=== PATIENT | female | born 1940 | race Caucasian/White ===

== ENCOUNTER → 2018-06-03 | Outpatient (CLI) | payer MEDICARE, OTHER ==
[~2018-06-03] MED LIST: AMOXICILLIN500 M1 PO; ASPIRIN325; CALCIUM + D3 E1 EACH; CEFTRIAXONE IV; CIPROFLOXACIN500 M3 PO; CRESTOR10 MG; DESYREL150 MG; DYRENIUM100 MG; FLONASE 0.05%50 MCG NASAL; FOLIC ACID0.8 MG; K-DUR 20 MEQ T20 MEQ PO; K-DUR10 MEQ; LEVOTHYROXINE0.05 MG; LISINOPRIL5 MG; MEGA RED; NORCO 5-325 TA1 EACH PO; VITAMIN B 12; VITAMIN D1000 UNI1; ZOFRAN4 MG PO
== END ==
LOC: M.RAD 10:29
DX: Z12.31 Encounter for screening mammogram for malignant neoplasm of breast (principal); M85.80 Other specified disorders of bone density and structure, unspecified site

== ENCOUNTER → 2019-06-01 | Outpatient (CLI) | payer MEDICARE, OTHER | LOC: M.RAD 09:00 | DX: Z12.31 Encounter for screening mammogram for malignant neoplasm of breast (principal) ==

== ENCOUNTER → 2020-01-05 | Outpatient (CLI) | payer MEDICARE, OTHER | LOC: M.LAB 10:07 | DX: Z01.818 Encounter for other preprocedural examination (principal); K44.9 Diaphragmatic hernia without obstruction or gangrene; M47.814 Spondylosis without myelopathy or radiculopathy, thoracic region; M48.04 Spinal stenosis, thoracic region; I70.0 Atherosclerosis of aorta; Q25.46 Tortuous aortic arch ==

== ENCOUNTER → 2020-01-11 | Outpatient (CLI) | payer MEDICARE, OTHER ==
--- NOTE | 2020-01-11 17:30 | CARDNUC ---
[place] [address] CARDIAC NUCLEAR IMAGING REPORT Name: JOVANNY CLEVELAND Room: [facility]#: [id number] Admission: 01/11/20 Attend Phys: Neisha Phillips, Discharge: Date of : 36 Date of Service: 01/11/20 1729 Report #: [id number] THIS REPORT FOR: cc: Karishma Flores MD, Katrina MD Liston, Michael J. MD [facility] ~ APPROVED REPORT Imaging Protocol: Stress Tc-99m/Rest Tc-99m 2 days Study performed: 01/11/2020 13:15:00 Indication: Pre-Operative CV evaluation, Murmur, Dyspnea. Patient Location: Out-Patient Stress Tech: Siri Hazel Stress Nurse: Michaela Dial RN Ht: 4 ft 11 in Wt: 153 lbs BSA: 1.65 m2 BMI: 30.89 Medical History Medical History: HTN, Hyperlipidemia, SOB, Valvular heart disease, Murmur. Medications: Rosuvastatin, Dyazide. Allergies: Amoxicillin. Cardiac Risk Factors: Age, FHX of CAD, HTN, Hyperlipidemia, SOB, Aortic Valve Stenosis/Murmur. Previous Cardiac Procedures: None Pretest Chest Pain Characteristics: No chest pain Exercise History: Indeterminate Physical Disabilities: Murmur. Meds Held (24 hrs): None Resting Data Rest SPECT myocardial perfusion imaging was performed in supine position 30 minutes following the intravenous injection of 11.3 mCi of Tc-99m Sestamibi. Time of rest injection: 13:50 Administration Route: IV Administration Site: Right AC Pharmacologic Stress Pharmacologic stress test was performed by injecting Regadenoson 0.4 mg IV push over 10-15 seconds immediately followed by the intravenous injection of 34.2 mCi of Tc-99m [place] [address] CARDIAC NUCLEAR IMAGING REPORT Name: JOVANNY CLEVELAND J Room: [facility] GINGER Winkler#: [id number] Admission: 01/11/20 Attend Phys: Neisha Verasgs, Discharge: Date of : 36 Date of Service: 01/11/20 1729 Report #: [id number] Time of stress injection: 15:50 Administration Route: IV Administration Site: Right AC Gated Stress SPECT was performed 40 minutes after stress injection. The images were gated to evaluate regional wall motion and calculate left ventricular ejection fraction. Prone imaging was performed. Stress Test Details Stress Test: Pharmacologic stress testing performed using 0.4 mg of regadenoson per 5 mL given IV over 10 seconds. Reason for pharmacologic stress test: murmur.. HR Max Heart Rate (APMHR): 139 bpm Resting HR: 63 bpm Target HR (85% APMHR): 118 bpm Max HR Achieved: 100 bpm % of APMHR: 71 Recovery HR: 90 bpm BP Resting BP: 153/88 mmHg Max BP: 170/77 mmHg Recovery BP: 179/84 mmHg ECG Resting ECG: Sinus Rhythm Stress ECG: Sinus Tachycardia ST Change: None Arrhythmia: None Recovery ECG: Sinus Rhythm Recovery ST Change: None Recovery Arrhythmia: None Clinical Reason for Termination: Completed protocol Stress Symptoms: Headache, labored breathing, flushed/warmth. Exercise duration: 00 min 00 sec Exercise capacity: 1.00 METs The patient tolerated Lexiscan infusion without significant cardiac symptoms. Nurse Comments An 79 year old female presented for a sitting Lexiscan r/t dyspnea, murmur and Pre-op clearance. Test well tolerated. Recovery unremarkable with PO caffeine, effective. [place] [address] CARDIAC NUCLEAR IMAGING REPORT Name: JOVANNY CLEVELAND Room: [facility]#: [id number] Admission: 01/11/20 Attend Phys: Neisha Phillips, Discharge: Date of : 36 Date of Service: 01/11/20 1729 Report #: [id number] staff to [facility] for imaging. Patient was stable and stated she felt good at that time. Stress ECG Conclusion The baseline 12-lead EKG shows sinus rhythm without significant ST segment abnormality. EKGs obtained during and post Lexiscan infusion show sinus rhythm and sinus tachycardia with no significant ST segment changes when compared baseline. There were no stress-induced arrhythmias. Study Quality Study: Good Artifact: No artifact Study Data At rest, the left ventricular ejection fraction was 66%.. Post stress, the left ventricular ejection was 76%.. TID = 0.91. Perfusion Images obtained at rest and post Lexiscan stress show uniform uptake of the radioisotope throughout the myocardium without defect. Wall Motion Normal left ventricular wall motion. Nuclear Conclusion ECG Findings: negative for ischemia Clinical Findings: negative for ischemia Nuclear Findings: negative for ischemia Exercise Capacity: not assessed Left Ventricular Function: normal Risk Study: low Myocardial perfusion images show no defect to suggest infarct or ischemia. Left ventricular systolic function appears normal on gated studies. This is a low risk study. <Conclusion> The baseline 12-lead EKG shows sinus rhythm without significant ST segment abnormality. EKGs obtained during and post Lexiscan infusion show sinus rhythm and sinus tachycardia with [place] [address] CARDIAC NUCLEAR IMAGING REPORT Name: JOVANNY CLEVELAND Room: [facility]#: [id number] Admission: 01/11/20 Attend Phys: Neisha Phillips, Discharge: Date of : 36 Date of Service: 01/11/20 1729 Report #: [id number] segment changes when compared baseline. There were no stress-induced arrhythmias. <ELECTRONICALLY SIGNED> By: Lito Apodaca MD, FACC 01/11/20 1729 1729 Lito Apodaca MD, FAC /INF
== END ==
LOC: M.NUC 01-05 16:18
DX: Z01.818 Encounter for other preprocedural examination (principal); I10 Essential (primary) hypertension; E78.5 Hyperlipidemia, unspecified; Z79.899 Other long term (current) drug therapy

== ENCOUNTER → 2020-06-26 | Outpatient (CLI) | payer MEDICARE, OTHER | LOC: M.RAD 06-04 13:20 | PROVIDERS: ATTEND Family Medicine | DX: Z12.31 Encounter for screening mammogram for malignant neoplasm of breast (principal); M81.0 Age-related osteoporosis without current pathological fracture; M85.851 Other specified disorders of bone density and structure, right thigh ==

== ENCOUNTER 2021-03-14 19:19 | Emergency (ER) | payer MEDICARE, OTHER ==
[~2021-03-14] VITALS: Ht 144.8 cm; Wt 64.9 kg
--- NOTE | ~2021-03-14 | EMS ---
[address] [address] EMS Patient Care Report Name: JOVANNY CLEVELAND Room: [facility]#: [id number] Admission: 03/14/21 Attend Phys: Discharge: 03/14/21 Date of : 36 Report #: [id number] THIS REPORT FOR: //name// Report Transmitted: 03/15/2021 16:32 EMS Care Summary [place] [facility] Incident 21-0401 @ 03/14/2021 18:36 Incident Location [address] [place] [address] Patient JOVANNY CLEVELAND Female, 80 Years 1940 Patient Address [address] [place] [address] Patient History Hypertension (HTN),Back Pain (Chronic), Patient Allergies No known allergies, Patient Medications Meclizine, Hydrocodone, Triamterene, Trazodone, Finasteride, Chief Complaint flank pain Disposition Transported No Lights/[place] Dispatch Reason Falls Transported To [facility] Narrative [facility] was dispatched for a 80 year old female that had fallen down earlier today and possibly broke her ribs. Med 1 responds to the scene emergent. Arrival at the scene patient is located sitting down on a recliner guarding her right flank. Patient acknowledges EMS presence is GCS 15, AAOx4. [address] [place] [address] EMS Patient Care Report Name: JOVANNY CLEVELAND Room: [facility]#: [id number] Admission: 03/14/21 Attend Phys: Discharge: 03/14/21 Date of : 38 Report #: [id number] Patient has a patent airway is breathing adequately with strong regular radial pulses. Skin is pink warm and dry. Patient advises that she tripped over her cat and fell onto her right side. Patient denies any neck or back pain or loss of consciousness. Patient confirms tenderness to the right flank and increased pain upon palpation or movement. Patient agrees to transport to [place] for further evaluation. Patient is assisted to the stretcher and placed on the left recumbent position which is the most comfortable position for the patient and secured with seatbelts and rails. Patient is wheeled to the ambulance and placed on the monitor to obtain VS. IV access is established in the left antecubital region using a 20 gauge IV and secured with a venigard. Transport is initiated. Assessment is conducted. Patient is GCS 15, AAOx4. Patient has a patent airway is breathing adequately with strong regular radial pulses. Skin is pink warm and dry. HEENT are WNL. Pupils are PERRL. Trachea is midline with no JVD noted. Chest wall is stable and intact with symmetrical rise and fall. Lung sounds are clear and equal. Abdomen is soft and nontender with no distention or rigidity noted. Pelvis is stable intact. CMSX4 present. Arrival at the receiving facility patient is offloaded and taken to ED room 11. Patient is moved from the stretcher to the bed using the linen. RN is given report and transfer of care is completed. Signatures are obtained and Med 1 returns to service. Initial Vitals @18:54P: 98,R: 18,BP: 158/68,Pain: 8/10,GCS: 15,SpO2: 96,Revised Trauma: 12, @19:08P: 100,R: 16,BP: 138/65,Pain: 6/10,GCS: 15,SpO2: 95,Revised Trauma: 12, Assessments @19:08MENTAL:No Abnormalities,SKIN:No Abnormalities,HEENT:Head/Face: No Abnormalities,Eyes: No Abnormalities,Neck/Airway: No Abnormalities,LUNG SOUNDS:General: No Abnormalities,ABDOMEN:General: No Abnormalities,PELVIS//GI:No Abnormalities,EXTREMITIES:Left Arm: No Abnormalities,Right Arm: No Abnormalities,Left Leg: No Abnormalities,Right Leg: No Abnormalities,PULSE:NEURO:No Abnormalities, Impression Acute Pain, not elsewhere classified Procedures @18:59Saline Lock 10cc (20 ga) Site: Antecubital-LeftResponse: UnchangedSucceeded@19:08ALS AssessmentResponse: UnchangedSucceeded Timeline 18:36,Call Received 18:36,[place] [address] EMS Patient Care Report Name: JOVANNY CLEVELAND [id number] Admission: 03/14/21 Attend Phys: Discharge: 03/14/21 Date of : 36 Report #: [id number] 18:37,En Route 18:41,Initial Responder On Scene 18:41,On Scene 18:43,At Patient 18:54,Depart Scene 18:54,BP: 158/68 M,PULSE: 98,RR: 18 R,SPO2: 96 Ox,ETCO2: ,BG: ,PAIN: 8,GCS: 15, 18:59,Saline Lock 10cc 20 ga Site: Antecubital-Left,Response: UnchangedSucceeded, 19:08,BP: 138/65 M,PULSE: 100,RR: 16 R,SPO2: 95 Ox,ETCO2: ,BG: ,PAIN: 6,GCS: 15, 19:08,ALS Assessment,Response: UnchangedSucceeded, 19:16,At Destination 19:17,Transfer Patient 19:40,Call Closed 19:40,In District Disclaimer v1.1 Copyright 2020 [employer] This EMS Care Summary contains data elements from the applicable legal record (which may be displayed differently). It is designed to provide pertinent information for the following purposes: continuity of care, clinical quality, and state data reporting. The complete legal record is available to ED staff and administrators of the receiving hospital in [employer]'s Patient Tracker. All data is provided "as is."
[2021-03-14] MEDS ORDERED: HYDROCODON-ACE1 EAC7 PO (20:38)
[2021-03-14] MEDS ORDERED: OXYCODONE HCL 55 MG PO (20:47)
[2021-03-14 21:38] VITALS: BP 127/59
== END 2021-03-14 21:39 | disposition home or self-care (01) ==
LOC: M.ERS 19:19
DX: S22.41XA Multiple fractures of ribs, right side, initial encounter for closed fracture (principal); E78.5 Hyperlipidemia, unspecified; E03.9 Hypothyroidism, unspecified; I10 Essential (primary) hypertension; M41.9 Scoliosis, unspecified; Z90.49 Acquired absence of other specified parts of digestive tract; Z88.0 Allergy status to penicillin; Z88.8 Allergy status to other drugs, medicaments and biological substances; W01.0XXA Fall on same level from slipping, tripping and stumbling without subsequent striking against object, initial encounter; Y93.89 Activity, other specified; Y92.89 Other specified places as the place of occurrence of the external cause; Y99.8 Other external cause status

== ENCOUNTER → 2021-07-08 | Outpatient (CLI) | payer MEDICARE, OTHER ==
[~2021-07-08] MED LIST changes: +HYDROCODON-ACE1 EAC7 PO; +OXYCODONE HCL 55 MG PO
== END ==
LOC: M.RAD 10:30
PROVIDERS: ATTEND Family Medicine
DX: Z12.31 Encounter for screening mammogram for malignant neoplasm of breast (principal)

== ENCOUNTER → 2021-11-14 | Outpatient (CLI) | payer MEDICARE, OTHER | LOC: M.MRI 12:57 | PROVIDERS: ATTEND Family Medicine | DX: M48.061 Spinal stenosis, lumbar region without neurogenic claudication (principal); M41.86 Other forms of scoliosis, lumbar region; M48.07 Spinal stenosis, lumbosacral region; M47.26 Other spondylosis with radiculopathy, lumbar region; M25.78 Osteophyte, vertebrae ==

== ENCOUNTER 2021-12-11 13:14 | Emergency (ER) | payer MEDICARE, OTHER ==
[~2021-12-11] VITALS: Ht 152.4 cm; Wt 68.0 kg
[2021-12-11] MEDS ORDERED: CELEXA 10 MG TA10 M1 PO (14:01)
[2021-12-11] MEDS ORDERED: FOSAMAX 70 MG T70 MG PO (14:01)
[2021-12-11] MEDS ORDERED: FLONASE 0.05%50 MCG NASAL (14:02)
[2021-12-11] MEDS ORDERED: DESYREL150 MG PO (14:02)
[2021-12-11] MEDS ORDERED: TRIAMTERENE-HC1 EAC2 PO (14:04)
[2021-12-11] MEDS ORDERED: NORCO5 PO (15:15)
[2021-12-11 15:35] VITALS: BP 148/68
== END 2021-12-11 15:35 | disposition home or self-care (01) ==
LOC: M.ERS 13:14
DX: S82.64XA Nondisplaced fracture of lateral malleolus of right fibula, initial encounter for closed fracture (principal); E78.5 Hyperlipidemia, unspecified; E03.9 Hypothyroidism, unspecified; I10 Essential (primary) hypertension; Z90.49 Acquired absence of other specified parts of digestive tract; Z79.82 Long term (current) use of aspirin; Z79.891 Long term (current) use of opiate analgesic; Z79.899 Other long term (current) drug therapy; Z88.0 Allergy status to penicillin; Z88.8 Allergy status to other drugs, medicaments and biological substances; W01.0XXA Fall on same level from slipping, tripping and stumbling without subsequent striking against object, initial encounter; Y93.89 Activity, other specified; Y92.89 Other specified places as the place of occurrence of the external cause; Y99.8 Other external cause status

== ENCOUNTER → 2021-12-17 | Day surgery (SDC) | payer MEDICARE, OTHER ==
[~2021-12-17] MED LIST changes: +CELEXA 10 MG TA10 M1 PO; -CRESTOR10 MG; +CRESTOR10 MG PO; +DESYREL150 MG PO; +DOXYCYCLINE 10100 MG PO; +FISH OIL PO; +FLONASE 0.05%50 MCG NARES; +FOSAMAX 70 MG T70 MG PO; +NORCO5 PO; +OCUVITE ADULT1 EAC1 PO; +PERCOCET 5-3251 EACH PO; +SUPER THERAVIT1 EACH PO; +TRIAMTERENE-HC1 EAC2 PO; -VITAMIN B 12; +VITAMIN B-12250 MCG PO; +VITAMIN C500 M2 PO; -VITAMIN D1000 UNI1; +VITAMIN D3 5000 PO; +VITAMIN D31250 MCG PO; +XALATAN2.5 ML OPHTHALMIC
[2021-12-17 14:09] LABS: HEMATOCRIT 36.9 % (37.0-47.0); HEMOGLOBIN 12.2 gm/dL (12.0-15.0); MCH 28.9 pg (26.0-34.0); MCHC 32.9 g/dL (28.0-37.0); MCV 87.8 fL (80.0-100.0); MPV 8.1 fl. (7.2-11.1); RBC 4.21 mil/uL (4.20-5.00); RDW-CV 16.7 % (10.5-14.5); WBC 6.5 thou/uL (4.0-11.0)
[2021-12-17 14:16] LABS: CALCIUM 8.8 mg/dL (8.5-10.1); CREATININE 0.7 mg/dL (0.6-1.3)
[2021-12-17 14:25] LABS: POTASSIUM 2.8 mmol/L (3.5-5.1)
--- NOTE | 2021-12-17 15:01 | EKG ---
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 [facility] 1940 Requested By: Shaka Farmer Order Number: [id number] Haley MD: Calixto Salvador Measurements Intervals [place] Rate: 70 P: 38 [place]: 157 QRS: -7 QRSD: 78 T: 4 QT: 586 QTc: 633 Interpretive Statements Sinus rhythm Atrial premature complexes Borderline T abnormalities, anterior leads Prolonged QT interval Compared to ECG 02/17/2013 07:53:07 Atrial premature complex(es) now present T-wave abnormality now present Prolonged QT interval now present Electronically Signed On 12-17-2021 15:01:24 WILLOW ANALYST by Calixto Salvador [email or web address] <ELECTRONICALLY SIGNED> By: Calixto Salvador MD, FAC 12/17/21 1501 1415 1415 Calixto Salvador MD, FAC /EPI
--- NOTE | 2021-12-24 10:57 | OP ---
[address] [address] OPERATIVE REPORT Name: JOVANNY CLEVELAND Room: [facility]#: [id number] Admission: 12/17/21 Attend Phys: Harish Madison II Discharge: Date of : 36 Report #: [id number] THIS REPORT FOR: cc: Karishma Flores MD, Katrina MD Greiner,Harish Driver II DO ~ DATE OF SURGERY: 12/17/2021 PREOPERATIVE DIAGNOSIS: Right lateral malleolus fracture. POSTOPERATIVE DIAGNOSIS: Right lateral malleolus fracture. PROCEDURE: Right lateral malleolus open reduction internal fixation. SURGEON: Harish Madison II, DO BUSINESS EDUCATION PROFESSOR: None. ANESTHESIA: Per operative record. ESTIMATED BLOOD LOSS: 10 mL. ANTIBIOTICS: Per operative record. DRAINS: None. COMPLICATIONS: None. CONDITION: The patient stable to recovery room. IMPLANTS USED: Mclaughlin and Nephew lateral malleolus plate. OPERATIVE PROCEDURE: The patient was taken to the operative suite, placed supine on the operating table, given appropriate anesthesia. The patient had a well-padded tourniquet applied to the affected lower extremity, which was inflated to 300 mmHg after Esmarch exsanguination for duration of procedure. The leg was sterilely prepped and draped. Surgery began by an incision over the fibula laterally. This was carried out to the subcutaneous tissues. The fibula fracture was then visualized with fluoroscopic evaluation and reduced in near anatomic fashion. This was held with lobster claw forceps plate was applied laterally. It was then secured to the fibula utilizing appropriate locking and nonlocking screws. This was visualized in AP and lateral views to be in excellent anatomic position. Cotton test was then performed to assess the syndesmosis and it was intact without widening of the medial joint. Irrigation was performed. The wound was closed with subcuticular Vicryl stitch and a running Monocryl stitch. Sterile dressing was applied as [place] [address] OPERATIVE REPORT Name: JOVANNY CLEVELAND Room: [facility]#: [id number] Admission: 12/17/21 Attend Phys: Harish Madison II Discharge: Date of : 36 Report #: [id number] Dermabond. The patient transported to recovery in stable condition. Counts correct x 2. <ELECTRONICALLY SIGNED> By: Harish Madison II, DO 12/24/21 1057 0652 0723Harish Madison II, DO /nt
== END | disposition home or self-care (01) ==
LOC: M.SUR 06:30
PROVIDERS: Anesthesiology; ATTEND Orthopaedic Surgery
DX: S82.61XA Displaced fracture of lateral malleolus of right fibula, initial encounter for closed fracture (principal); Z98.890 Other specified postprocedural states; Z79.899 Other long term (current) drug therapy; Z20.822 Contact with and (suspected) exposure to COVID-19; Z88.0 Allergy status to penicillin; X58.XXXA Exposure to other specified factors, initial encounter; Y93.89 Activity, other specified; Y92.89 Other specified places as the place of occurrence of the external cause; Y99.8 Other external cause status

== ENCOUNTER 2021-12-22 11:43 | Inpatient (IN) | payer MEDICARE, OTHER ==
[~2021-12-22] VITALS: Ht 152.4 cm; Wt 86.2 kg
--- NOTE | ~2021-12-22 | EMS ---
[address] [address] EMS Patient Care Report Name: JOVANNY CLEVELAND Room: [place] [address] ADM [place] [facility]#: [id number] Admission: 12/22/21 Attend Phys: Dylan Osman MD Discharge: Date of : 36 Report #: [id number] THIS REPORT FOR: //name// Report Transmitted: 12/22/2021 21:24 EMS Care Summary [place] [facility] Incident 22-0157 @ 12/22/2021 10:52 Incident Location [address] [place] [address] Patient JOVANNY CLEVELAND Female, 81 Years 1940 Patient Address [address] [place] [address] Patient History Other,Hypertension (HTN), Patient Allergies Penicillin allergy, Patient Medications Unknown, Chief Complaint AMS Disposition Transported No Lights/[place] Dispatch Reason Sick Person Transported To [facility] Narrative Dispatched to a residence for 81y/o female AMS. Upon arrival pt. was sitting on a couch, alert but confused. Family stated that pt. had a recent fall with a broken leg and had to have pins and plates. Pt. has been home approx. 2 weeks and has had increased general weakness and AMS. Family also stated that pt. [address] [address] EMS Patient Care Report Name: JOVANNY CLEVELAND Room: [place] [address] ADM [place] ..#: [id number] Admission: 12/22/21 Attend Phys: Dylan Osman MD Discharge: Date of : 36 Report #: [id number] urine is discolored but could not give a good description, leading them to suspect a UTI. Pt. voiced no complaints at this time. VS were stable with no changes during transport. Pt. was transported to [place] for emergency services. Initial Vitals @11:05P: 86,R: 16,BP: 160/90,Pain: 0/10,GCS: 14,Glucose: 169,SpO2: 95,Revised Trauma: 12, @11:20P: 84,R: 16,BP: 156/84,GCS: 14,SpO2: 95,Revised Trauma: 12, @11:35P: 84,R: 16,BP: 150/86,GCS: 14,SpO2: 94,Revised Trauma: 12, Impression Altered Mental Status Timeline 10:51,Call Received 10:52,Dispatched 10:53,En Route 10:55,Initial Responder On Scene 10:55,On Scene 10:57,At Patient 11:05,BP: 160/90 M,PULSE: 86,RR: 16 R,SPO2: 95 Ox,ETCO2: ,B,PAIN: 0,GCS: 14, 11:15,Depart Scene 11:20,BP: 156/84 M,PULSE: 84,RR: 16 R,SPO2: 95 Ox,ETCO2: ,BG: ,PAIN: ,GCS: 14, 11:35,BP: 150/86 M,PULSE: 84,RR: 16 R,SPO2: 94 Ox,ETCO2: ,BG: ,PAIN: ,GCS: 14, 11:41,At Destination 11:43,Transfer Patient 11:57,Call Closed 12:12,In District Disclaimer v1.1 Copyright 2021 [employer] This EMS Care Summary contains data elements from the applicable legal record (which may be displayed differently). It is designed to provide pertinent information for the following purposes: continuity of care, clinical quality, and state data reporting. The complete legal record is available to ED staff and administrators of the receiving hospital in [employer]'s Patient Tracker. All data is provided "as is."
--- NOTE | ~2021-12-22 | EMS ---
[address] [address] EMS Patient Care Report Name: JOVANNY CLEVELAND Room: [place] [address] ADM [place] [facility]#: [id number] Admission: 12/22/21 Attend Phys: Dylan Osman MD Discharge: Date of : 36 Report #: [id number] THIS REPORT FOR: //name// Report Transmitted: 12/22/2021 20:23 EMS Care Summary [place] [facility] Incident 22-0157 @ 12/22/2021 10:52 Incident Location [address] [place] [address] Patient JOVANNY CLEVELAND Female, 81 Years 1940 Patient Address [address] [place] [address] Patient History Other,Hypertension (HTN), Patient Allergies Penicillin allergy, Patient Medications Unknown, Chief Complaint AMS Disposition Transported No Lights/[place] Dispatch Reason Sick Person Transported To [facility] Narrative Dispatched to a residence for 81y/o female AMS. Upon arrival pt. was sitting on a couch, alert but confused. Family stated that pt. had a recent fall with a broken leg and had to have pins and plates. Pt. has been home approx. 2 weeks and has had increased general weakness and AMS. Family also stated that pt. [address] [address] EMS Patient Care Report Name: JOVANNY CLEVELAND Room: [place] [address] ADM [place] .R.#: [id number] Admission: 12/22/21 Attend Phys: Dylan Osman MD Discharge: Date of : 36 Report #: [id number] urine is discolored but could not give a good description, leading them to suspect a UTI. Pt. voiced no complaints at this time. VS were stable with no changes during transport. Pt. was transported to [place] for emergency services. Initial Vitals @11:05P: 86,R: 16,BP: 160/90,Pain: 0/10,GCS: 14,Glucose: 169,SpO2: 95,Revised Trauma: 12, @11:20P: 84,R: 16,BP: 156/84,GCS: 14,SpO2: 95,Revised Trauma: 12, @11:35P: 84,R: 16,BP: 150/86,GCS: 14,SpO2: 94,Revised Trauma: 12, Impression Altered Mental Status Timeline 10:51,Call Received 10:52,Dispatched 10:53,En Route 10:55,Initial Responder On Scene 10:55,On Scene 10:57,At Patient 11:05,BP: 160/90 M,PULSE: 86,RR: 16 R,SPO2: 95 Ox,ETCO2: ,B,PAIN: 0,GCS: 14, 11:15,Depart Scene 11:20,BP: 156/84 M,PULSE: 84,RR: 16 R,SPO2: 95 Ox,ETCO2: ,BG: ,PAIN: ,GCS: 14, 11:35,BP: 150/86 M,PULSE: 84,RR: 16 R,SPO2: 94 Ox,ETCO2: ,BG: ,PAIN: ,GCS: 14, 11:41,At Destination 11:43,Transfer Patient 11:57,Call Closed 12:12,In District Disclaimer v1.1 Copyright 2021 [employer] This EMS Care Summary contains data elements from the applicable legal record (which may be displayed differently). It is designed to provide pertinent information for the following purposes: continuity of care, clinical quality, and state data reporting. The complete legal record is available to ED staff and administrators of the receiving hospital in [employer]'s Patient Tracker. All data is provided "as is."
[~2021-12-22 11:43] MED LIST changes: -DOXYCYCLINE 10100 MG PO; -FISH OIL PO; -FLONASE 0.05%50 MCG NARES; -OCUVITE ADULT1 EAC1 PO; -VITAMIN C500 M2 PO; -VITAMIN D3 5000 PO; -XALATAN2.5 ML OPHTHALMIC
[2021-12-22 11:52] VITALS: BP 127/87
[2021-12-22 12:04] LABS: URINE BILIRUBIN NEGATIVE (Negative); URINE BLOOD NEGATIVE (Negative); URINE CLARITY CLEAR; URINE COLOR YELLOW; URINE GLUCOSE-RANDOM NEGATIVE (Negative); URINE KETONES 1+ (Negative); URINE LEUKOCYTES NEGATIVE (Negative); URINE NITRITE NEGATIVE (Negative); URINE PROTEIN TRACE (Negative); URINE SPECIFIC GRAVITY 1.015 (1.005-1.030)
[2021-12-22] MEDS ORDERED: FLONASE 0.05%50 MCG NARES (12:15)
[2021-12-22] MEDS ORDERED: VITAMIN C500 M2 PO (12:16)
[2021-12-22 12:19] LABS: ABSOLUTE BASOPHILS 0.1 thou/uL (0.0-0.2); ABSOLUTE EOSINOPHILS 0.2 thou/uL (0.0-0.7); ABSOLUTE LYMPHOCYTES 1.5 thou/uL (0.8-5.3); ABSOLUTE MONOCYTES 0.8 thou/uL (0.0-1.2); ABSOLUTE NEUTROPHILS 4.4 thou/uL (1.6-8.1); BASOPHILS 0.8 %; EOSINOPHILS 3.1 %; HEMATOCRIT 37.5 % (37.0-47.0); HEMOGLOBIN 12.1 gm/dL (12.0-15.0); LYMPHOCYTES 21.8 %; MCH 28.5 pg (26.0-34.0); MCHC 32.4 g/dL (28.0-37.0); MCV 87.8 fL (80.0-100.0); MONOCYTES 11.2 %; MPV 8.1 fl. (7.2-11.1); NUCLEATED RBCS 0 /100WBC; PLATELET COUNT* 284 thou/uL (150-400); POLYS 63.1 %; RBC 4.26 mil/uL (4.20-5.00); RDW-CV 16.1 % (10.5-14.5); WBC 6.9 thou/uL (4.0-11.0)
[2021-12-22] MEDS ORDERED: OCUVITE ADULT1 EAC1 PO (12:20)
[2021-12-22] MEDS ORDERED: FISH OIL PO (12:22)
[2021-12-22] MEDS ORDERED: VITAMIN D3 5000 PO (12:22)
[2021-12-22] MEDS ORDERED: XALATAN2.5 ML OPHTHALMIC (12:24)
[2021-12-22 12:28] LABS: CALCIUM 8.8 mg/dL (8.5-10.1); CREATININE 0.8 mg/dL (0.6-1.3); POTASSIUM 3.2 mmol/L (3.5-5.1)
[2021-12-22] MEDS ORDERED: PERCOCET 5-3251 EACH PO (12:30)
[2021-12-22 12:33] LABS: ALBUMIN 3.1 g/dL (3.4-5.0); TOTAL BILIRUBIN 0.5 mg/dL (<0.1-1.0)
[2021-12-22 18:21] VITALS: BP 161/81
[2021-12-22 22:30] VITALS: BP 161/89
[2021-12-23] VITALS (8 sets, daily range): BP systolic 159–168; BP diastolic 58–81
[2021-12-23 07:23] LABS: ABSOLUTE BASOPHILS 0.1 thou/uL (0.0-0.2); ABSOLUTE EOSINOPHILS 0.3 thou/uL (0.0-0.7); ABSOLUTE LYMPHOCYTES 1.6 thou/uL (0.8-5.3); ABSOLUTE MONOCYTES 0.8 thou/uL (0.0-1.2); ABSOLUTE NEUTROPHILS 3.8 thou/uL (1.6-8.1); BASOPHILS 0.8 %; EOSINOPHILS 4.1 %; HEMOGLOBIN 11.5 gm/dL (12.0-15.0); LYMPHOCYTES 24.9 %; MCH 28.5 pg (26.0-34.0); MCHC 32.1 g/dL (28.0-37.0); MONOCYTES 12.4 %; MPV 7.7 fl. (7.2-11.1); NUCLEATED RBCS 0 /100WBC; PLATELET COUNT* 264 thou/uL (150-400); POLYS 57.8 %; RBC 4.04 mil/uL (4.20-5.00); RDW-CV 15.5 % (10.5-14.5); WBC 6.6 thou/uL (4.0-11.0)
[2021-12-23 07:49] LABS: CREATININE 0.6 mg/dL (0.6-1.3)
[2021-12-23 10:10] LABS: MAGNESIUM 1.8 mg/dL (1.8-2.4); PHOSPHORUS* 2.3 mg/dL (2.5-4.9)
--- NOTE | 2021-12-23 11:13 | EKG ---
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 : 1940 Requested By: Agusto Isaacs Order Number: [id number] MD: Hugo Whitney Measurements Intervals [place] Rate: 76 P: 38 [place]: 153 QRS: -8 QRSD: 85 T: 5 QT: 396 QTc: 446 Interpretive Statements Sinus rhythm Compared to ECG 12/17/2021 14:15:52 Atrial premature complex(es) no longer present T-wave abnormality no longer present Prolonged QT interval no longer present Electronically Signed On 12-23-2021 11:12:41 SOCIAL SECRETARY by Hugo Whitney [email or web address] <ELECTRONICALLY SIGNED> By: Hugo Whitney MD, [facility] 12/23/21 1112 1233 1233 Hugo Whitney MD, [facility] /EPI
[2021-12-24] VITALS: BP 158/69
[2021-12-24 04:00] VITALS: BP 185/90
[2021-12-24 07:26] LABS: ABSOLUTE BASOPHILS 0.1 thou/uL (0.0-0.2); ABSOLUTE EOSINOPHILS 0.3 thou/uL (0.0-0.7); ABSOLUTE LYMPHOCYTES 1.7 thou/uL (0.8-5.3); ABSOLUTE NEUTROPHILS 3.2 thou/uL (1.6-8.1); BASOPHILS 1.1 %; HEMOGLOBIN 11.6 gm/dL (12.0-15.0); LYMPHOCYTES 26.6 %; MCH 28.5 pg (26.0-34.0); MCHC 32.3 g/dL (28.0-37.0); MCV 88.2 fL (80.0-100.0); MONOCYTES 16.4 %; MPV 7.9 fl. (7.2-11.1); NUCLEATED RBCS 0 /100WBC; PLATELET COUNT* 263 thou/uL (150-400); POLYS 50.9 %; RBC 4.09 mil/uL (4.20-5.00); RDW-CV 15.5 % (10.5-14.5); WBC 6.4 thou/uL (4.0-11.0)
[2021-12-24 07:28] LABS: CALCIUM 8.2 mg/dL (8.5-10.1); CREATININE 0.7 mg/dL (0.6-1.3); POTASSIUM 3.5 mmol/L (3.5-5.1)
[2021-12-24 08:00] VITALS: BP 158/65
[2021-12-24 11:38] VITALS: BP 149/59
[2021-12-24 15:59] VITALS: BP 138/58
[2021-12-24 20:00] VITALS: BP 157/68
[2021-12-25] VITALS: BP 151/71
[2021-12-25 04:00] VITALS: BP 159/72
[2021-12-25 08:19] VITALS: BP 154/71
[2021-12-25 09:41] LABS: ABSOLUTE BASOPHILS 0.1 thou/uL (0.0-0.2); ABSOLUTE EOSINOPHILS 0.2 thou/uL (0.0-0.7); ABSOLUTE MONOCYTES 1.2 thou/uL (0.0-1.2); ABSOLUTE NEUTROPHILS 7.4 thou/uL (1.6-8.1); BASOPHILS 0.9 %; EOSINOPHILS 2.3 %; HEMATOCRIT 38.5 % (37.0-47.0); LYMPHOCYTES 18.4 %; MCH 27.8 pg (26.0-34.0); MCHC 31.1 g/dL (28.0-37.0); MCV 89.2 fL (80.0-100.0); MONOCYTES 11.2 %; MPV 8.1 fl. (7.2-11.1); NUCLEATED RBCS 0 /100WBC; PLATELET COUNT* 299 thou/uL (150-400); POLYS 67.2 %; RBC 4.32 mil/uL (4.20-5.00); RDW-CV 15.7 % (10.5-14.5)
[2021-12-25 09:56] LABS: ALBUMIN 2.9 g/dL (3.4-5.0); CALCIUM 8.4 mg/dL (8.5-10.1); CREATININE 0.8 mg/dL (0.6-1.3); POTASSIUM 3.5 mmol/L (3.5-5.1); TOTAL BILIRUBIN 0.3 mg/dL (<0.1-1.0); TOTAL PROTEIN 7.1 g/dL (6.4-8.2)
[2021-12-25 12:29] VITALS: BP 149/83
[2021-12-25 16:32] VITALS: BP 166/73
[2021-12-25 20:00] VITALS: BP 163/64
[2021-12-26 00:40] VITALS: BP 138/68
[2021-12-26 07:46] VITALS: BP 141/73
[2021-12-26] MEDS ORDERED: DOXYCYCLINE 10100 MG PO (08:19)
[2021-12-26 13:48] VITALS: BP 162/75
== END 2021-12-26 14:55 | DRG 177 ==
LOC: M.ERS 11:43 → M.2W 14:22 → M.TBA-ER 14:22 → M.2W 12-23 15:24
PROVIDERS: Emergency Medicine; ADMIT Internal Medicine; ATTEND Internal Medicine
DX: J15.6 Pneumonia due to other Gram-negative bacteria (principal); G92.8 Other toxic encephalopathy; F11.20 Opioid dependence, uncomplicated; Z20.822 Contact with and (suspected) exposure to COVID-19; E78.5 Hyperlipidemia, unspecified; E03.9 Hypothyroidism, unspecified; I10 Essential (primary) hypertension; M19.90 Unspecified osteoarthritis, unspecified site; F03.90 Unspecified dementia, unspecified severity, without behavioral disturbance, psychotic disturbance, mood disturbance, and anxiety; E87.6 Hypokalemia; G89.29 Other chronic pain; M54.9 Dorsalgia, unspecified; Z90.49 Acquired absence of other specified parts of digestive tract; Z88.0 Allergy status to penicillin; Z88.8 Allergy status to other drugs, medicaments and biological substances; Z87.81 Personal history of (healed) traumatic fracture; Z79.899 Other long term (current) drug therapy

== ENCOUNTER 2021-12-26 14:41 | Inpatient (IN) | payer MEDICARE, OTHER ==
[~2021-12-26] VITALS: Ht 147.3 cm; Wt 65.2 kg
--- NOTE | ~2021-12-26 | EEG ---
[address] [address] EEG STUDY REPORT Name: JOVANNY CLEVELAND Room: [address] [place] .R.#: [id number] Admission: 12/26/21 Attend Phys: Chepe Rivera MD Discharge: Date of : 36 Report #: [id number] THIS REPORT FOR: cc: Karishma Flores MD, Katrina MD Khosla, Parveen K. MD ~ DATE OF SERVICE: 01/03/2022 This patient's EEG was done to evaluate the patient for altered mental status. EEG was done by placing the electrode by standard 10-20 system of electrode placement. Both referential and sequential montages were used. Background activity in this patient's EEG is about 8 Hz and 30 microvolt. There is a symmetrical activity. Photic stimulation is unremarkable. Throughout the record, no active epileptiform activity was noticed. The patient appeared to be drowsy during part of this EEG and that is associated with bilateral slowing. IMPRESSION: This is a moderately abnormal EEG because it is intermixed with theta range slowing on both sides. There is a nonspecific abnormality which can occur with encephalopathy, effect of psychotropic medication, dementia, etc. Clinical correlation is recommended. By: [id number] Bond MD /nt
--- NOTE | ~2021-12-26 | CON ---
[address] [address] CONSULTATION Name: JOVANNY CLEVELAND Room: [address] IN .R.#: [id number] Admission: 12/26/21 Attend Phys: Chepe Rivera MD Discharge: Date of : 36 Report #: [id number] THIS REPORT FOR: cc: Karishma Flores MD, Katrina MD Khosla, Parveen K. MD ~ DATE OF CONSULTATION: 01/01/2022 HISTORY OF PRESENT ILLNESS: An 81-year-old female patient who was evaluated by me for altered mental status and confusion. The patient does not think she is confused. I took the history by reviewing the records, but I also called the patient's daughter and talked to her. This patient lives with the daughter. She moved here mostly for social reason. She does not drive. She had some memory issues before, but now the patient has really gone down and her functional status has significantly declined. She had a fall. She had a broken ankle and then had pneumonia and had what looks like toxic encephalopathy. REVIEW OF SYSTEMS: This patient was here in this hospital in 2012 and I saw her, and she had an MRI. She had moderate amount of disease at that time. She also had headaches. At that time, there was some history suggestive of dementia, difficult to get full history on this patient in that regard. She has a history of hypothyroidism, hypertension, hyperlipidemia, scoliosis. She denies any eyes, ENT, cardiac, respiratory, GI, , constitutional, dermatological, hematological, psychiatric, throat, allergic symptom associated with present symptomatology. PAST MEDICAL HISTORY: Positive for some memory disturbances, but presently she is very confused according to the family. FAMILY HISTORY: Unremarkable. SOCIAL HISTORY: She does not smoke or drink any alcohol. PHYSICAL EXAMINATION: Indicates that when I asked her what month it is, it took a long time to tell me what month it is. She could not tell me the date. She knew the president. Her memory looks pretty poor and that is not the baseline according to the family. Her speech looks intact. Cranial nerve examination 2-12 looks unremarkable. Strength, sensation, tone and reflexes are symmetrical. She does not appear to be ataxic. I could not look at the patient's fundus. There is no meningeal sign. She is otherwise alert, oriented. Her vision and hearing looks adequate. Pulses are difficult to feel, but I believe are palpable. There is no edema. No respiratory difficulty. VITAL SIGNS: Blood pressure is 159/67, respirations 16, pulse is 63, temperature is 98.4. [place] [address] CONSULTATION Name: JOVANNY CLEVELAND Room: [address] [place] .R.#: [id number] Admission: 12/26/21 Attend Phys: Chepe Rivera MD Discharge: Date of : 36 Report #: [id number] LABORATORY DATA: White count is normal at 6.0. She did have a CT scan, which appears unremarkable, except for chronic changes. IMPRESSION: It looks like the patient had some disease on the MRI even in 2012, and she may have some underlying dementia and now she has a superimposed encephalopathy. Family thinks there is a drastic change in them and because of that, we will get an MRI and EEG done to make sure there is no other etiology there. Further workup, if any, will depend upon the outcome of the MRI. Thank you very much for this referral. I discussed all of this with the patient and the daughter and they want to follow this plan. By: 10 36Jose Bond MD /nt
[~2021-12-26 14:41] MED LIST changes: +DOXYCYCLINE 10100 MG PO; +FISH OIL PO; +FLONASE 0.05%50 MCG NARES; +OCUVITE ADULT1 EAC1 PO; +VITAMIN C500 M2 PO; +VITAMIN D3 5000 PO; +XALATAN2.5 ML OPHTHALMIC
[2021-12-26 15:30] VITALS: BP 131/39
[2021-12-26 20:00] VITALS: BP 129/56
[2021-12-27 08:00] VITALS: BP 122/59
[2021-12-27 10:00] LABS: HEMATOCRIT 35.9 % (37.0-47.0); HEMOGLOBIN 11.6 gm/dL (12.0-15.0); MCH 28.8 pg (26.0-34.0); MCHC 32.4 g/dL (28.0-37.0); MCV 88.9 fL (80.0-100.0); MPV 8.4 fl. (7.2-11.1); RBC 4.04 mil/uL (4.20-5.00); RDW-CV 15.1 % (10.5-14.5); WBC 7.6 thou/uL (4.0-11.0)
[2021-12-27 10:25] LABS: ALBUMIN 2.7 g/dL (3.4-5.0); CALCIUM 9.1 mg/dL (8.5-10.1); CREATININE 0.7 mg/dL (0.6-1.3); POTASSIUM 3.4 mmol/L (3.5-5.1); TOTAL BILIRUBIN 0.3 mg/dL (<0.1-1.0); TOTAL PROTEIN 6.8 g/dL (6.4-8.2)
[2021-12-27 20:00] VITALS: BP 144/60
[2021-12-28 08:04] VITALS: BP 163/70
[2021-12-28 19:00] VITALS: BP 144/72
[2021-12-29 08:00] VITALS: BP 146/66
[2021-12-29 19:55] VITALS: BP 150/63
[2021-12-30 07:30] VITALS: BP 168/63
[2021-12-30 19:00] VITALS: BP 154/68
[2021-12-31 20:00] VITALS: BP 150/73
[2022-01-01 04:35] LABS: CALCIUM 8.9 mg/dL (8.5-10.1); CREATININE 0.8 mg/dL (0.6-1.3); POTASSIUM 3.4 mmol/L (3.5-5.1)
[2022-01-01 04:45] LABS: HEMATOCRIT 33.6 % (37.0-47.0); HEMOGLOBIN 10.9 gm/dL (12.0-15.0); MCH 28.7 pg (26.0-34.0); MCHC 32.5 g/dL (28.0-37.0); MCV 88.2 fL (80.0-100.0); MPV 8.3 fl. (7.2-11.1); RBC 3.81 mil/uL (4.20-5.00); RDW-CV 14.9 % (10.5-14.5)
[2022-01-01 07:40] VITALS: BP 159/67
[2022-01-01 20:00] VITALS: BP 157/76
[2022-01-02 08:06] VITALS: BP 156/84
[2022-01-02 20:00] VITALS: BP 156/75
[2022-01-03 07:36] VITALS: BP 162/68
[2022-01-03 20:00] VITALS: BP 191/87
[2022-01-04 08:08] VITALS: BP 165/63
[2022-01-04 20:05] VITALS: BP 149/61
[2022-01-05 07:56] VITALS: BP 167/82
[2022-01-05 19:25] VITALS: BP 147/73
[2022-01-06 07:45] VITALS: BP 145/57
[2022-01-06 19:25] VITALS: BP 152/70
[2022-01-07 08:01] VITALS: BP 157/79
[2022-01-07 20:13] VITALS: BP 169/77
[2022-01-08 05:47] LABS: HEMATOCRIT 35.4 % (37.0-47.0); HEMOGLOBIN 11.3 gm/dL (12.0-15.0); MCH 28.4 pg (26.0-34.0); MCHC 32.1 g/dL (28.0-37.0); MCV 88.7 fL (80.0-100.0); MPV 8.7 fl. (7.2-11.1); RBC 3.99 mil/uL (4.20-5.00); RDW-CV 14.8 % (10.5-14.5); WBC 6.2 thou/uL (4.0-11.0)
[2022-01-08 06:16] LABS: CALCIUM 8.9 mg/dL (8.5-10.1); CREATININE 0.8 mg/dL (0.6-1.3); POTASSIUM 3.3 mmol/L (3.5-5.1)
[2022-01-08 08:13] VITALS: BP 156/79
[2022-01-08 08:36] LABS: MAGNESIUM 2.1 mg/dL (1.8-2.4); PHOSPHORUS* 3.3 mg/dL (2.5-4.9)
[2022-01-08 20:00] VITALS: BP 157/70
[2022-01-09 08:00] VITALS: BP 165/72
[2022-01-09 20:00] VITALS: BP 172/77
[2022-01-10 08:14] VITALS: BP 179/88
[2022-01-10 08:21] VITALS: BP 179/88
[2022-01-10 19:40] VITALS: BP 166/81
[2022-01-11 08:30] VITALS: BP 159/77
[2022-01-11 20:15] VITALS: BP 145/74
[2022-01-12 07:41] VITALS: BP 167/84
[2022-01-12 19:44] VITALS: BP 140/59
[2022-01-13 08:00] VITALS: BP 143/75
[2022-01-13 19:00] VITALS: BP 164/54
== END 2022-01-14 | disposition home health service (06) | DRG 91 ==
LOC: M.REH 14:41
PROVIDERS: Internal Medicine; ADMIT Physical Medicine & Rehabilitation; ATTEND Physical Medicine & Rehabilitation
PROC: 4A10X4Z Monitoring of Central Nervous Electrical Activity, External Approach (ICD-10-PCS; principal; 2022-01-03)
DX: G92.9 Unspecified toxic encephalopathy (principal); J18.9 Pneumonia, unspecified organism; F03.90 Unspecified dementia, unspecified severity, without behavioral disturbance, psychotic disturbance, mood disturbance, and anxiety; E78.5 Hyperlipidemia, unspecified; R53.81 Other malaise; E03.9 Hypothyroidism, unspecified; G89.29 Other chronic pain; M54.9 Dorsalgia, unspecified; I10 Essential (primary) hypertension; R21 Rash and other nonspecific skin eruption; E87.6 Hypokalemia; R94.01 Abnormal electroencephalogram [EEG]; J32.9 Chronic sinusitis, unspecified; R26.9 Unspecified abnormalities of gait and mobility; Z74.09 Other reduced mobility; X58.XXXD Exposure to other specified factors, subsequent encounter; M41.9 Scoliosis, unspecified; Z91.81 History of falling; Z88.0 Allergy status to penicillin; S82.891D Other fracture of right lower leg, subsequent encounter for closed fracture with routine healing; Z88.8 Allergy status to other drugs, medicaments and biological substances; Z90.49 Acquired absence of other specified parts of digestive tract; Z87.01 Personal history of pneumonia (recurrent)